=== PATIENT | male | born 1965 | race African-American/Black ===

== ENCOUNTER 2017-09-08 13:49 | Observation (INO) | payer BC ==
[2017-09-07 17:34] LABS: BASOPHILS % 0.2 % (0.0-1.0); EOSINOPHILS # (AUTO) 0.2 (0.0-0.4); EOSINOPHILS % 1.4 % (0.0-6.0); HEMATOCRIT 39.9 % (38.2-49.6); HEMOGLOBIN 13.2 g/dL (14.0-18.0); LYMPHOCYTES # (AUTO) 3.1 (1.0-3.2); LYMPHOCYTES % 26.9 % (18.0-39.1); MEAN CORPUSCULAR HEMOGLOBIN 28.5 pg (28-32); MEAN CORPUSCULAR HGB CONC 33.1 g/dL (31-35); MEAN CORPUSCULAR VOLUME 86.2 fL (81-99); MONOCYTES % 8.7 % (4.4-11.3); NEUTROPHILS # (AUTO) 7.2 (2.1-6.9); NEUTROPHILS % 62.5 % (38.7-80.0); PLATELET COUNT 382 x10e3/uL (140-360); RED BLOOD COUNT 4.63 x10e6/uL (4.3-5.7)
[2017-09-07 17:43] LABS: INR 1.04; PROTHROMBIN TIME 12.8 seconds (11.9-14.5)
[2017-09-07 17:51] LABS: ALANINE AMINOTRANSFERASE 9 IU/L (0-55); ALBUMIN/GLOBULIN RATIO 0.9 (0.8-2.0); ALKALINE PHOSPHATASE 118 IU/L (40-150); ANION GAP 13.9 mmol/L (8-16); BLOOD UREA NITROGEN 10 mg/dL (7-26); BUN/CREATININE RATIO 10 (6-25); CALCIUM 9.9 mg/dL (8.4-10.2); CARBON DIOXIDE 30 mmol/L (22-29); CHLORIDE 100 mmol/L (98-107); CHOL/HDL RATIO 4.5 (3.9-4.7); CHOLESTEROL 134 MD/DL (0-199); CREATININE, SERUM 1.03 mg/dL (0.72-1.25); EST GLOMERULAR FILTRATION RATE > 60 ML/MIN (60-); GLUCOSE 105 mg/dL (74-118); HDL CHOLESTEROL 30 MG/DL (40-60); LDL CHOLESTEROL 81 MG/DL (60-130); POTASSIUM 3.9 mmol/L (3.5-5.1); SODIUM 140 mmol/L (136-145); TRIGLYCERIDES 114 MG/DL (0-149)
[2017-09-08] VITALS (10 sets, daily range): BP systolic 113–136; BP diastolic 64–89
[~2017-09-08] VITALS: Ht 190.5 cm; Wt 110.2 kg
[2017-09-08] MEDS ORDERED: ASPIRIN CHEW81 MG PO (14:42)
[2017-09-08] MEDS ORDERED: EFFIENT10 MG PO (14:42)
[2017-09-08] MEDS ORDERED: HYDRALAZINE HCL25 MG PO (14:42)
[2017-09-08] MEDS ORDERED: LOSARTAN POTASS25 MG PO (14:42)
[2017-09-08] MEDS ORDERED: ATORVASTATIN CA20 MG PO (14:42)
[2017-09-08] MEDS ORDERED: AMLODIPINE BESY10 MG PO (14:42)
[2017-09-08] MEDS ORDERED: METOPROLOL SUCC25 MG PO (14:42)
[2017-09-08] MEDS ORDERED: HEPARIN SOD (PORCINE) 1000 UNIT/ML 30ML ONE (15:04)
[2017-09-08] MEDS ORDERED: VERAPAMIL HCL 2.5 MG/ML 2 ML VIAL ONE (15:04)
[2017-09-08] MEDS ORDERED: FENTANYL CITRATE/PF 100MCG/2 ML INJ ONE (15:04)
[2017-09-08] MEDS ORDERED: HEPARIN SOD/SOD CHLORIDE 2,000 ML ONE (15:05)
[2017-09-08] MEDS ORDERED: LIDOCAINE HCL 2% LOCAL 20 ML VIAL ONE (15:05)
[2017-09-08] MEDS ORDERED: MIDAZOLAM HCL 2 MG/2 ML VIAL ONE (15:05)
[2017-09-08] MEDS ORDERED: NITROGLYCERIN/D5W 200 MCG/ML 250 ML ONE (15:06)
[2017-09-08] MEDS ORDERED: SODIUM CHLORIDE 0.9% 1000ML 1,000 ML ONE (15:06)
[2017-09-08] MEDS ORDERED: IOPAMIDOL 370 MG/ML 200 ML INFUS..BTL INJ ONE (15:06)
--- NOTE | 2017-09-08 17:24 | Operative Report ---
DATE OF PROCEDURE: September 08, 2017 PROCEDURE INDICATION: Recent acute coronary syndrome with residual stable angina. Patient with multivessel coronary artery disease status post LAD and diagonal drug-eluting stent PCI with residual 95% stenosis of the RPDA here for staged intervention of the RPDA. PROCEDURES PERFORMED 1. Selective coronary angiography of the right coronary system. 2. Drug-eluting stent prior PCI with a Synergy 2.25 x 16 drug-eluting stent deployed to 14 atmospheres across the target lesion with excellent results. 3. Right radial TR banding hemostasis. PROCEDURE COMPLICATIONS: None. ESTIMATED BLOOD LOSS: Less than 15 mL. PROCEDURE SUMMARY: After consent was obtained, the patient was prepped and draped in a sterile fashion. The right radial site was locally infiltrated with 2% lidocaine. Access was obtained using single anterior stick and a 5-Romanian outer diameter slender sheath was advanced across the right radial artery. A [employer] right [id number] 5-Romanian guide catheter was advanced over a wire into the proximal ascending aorta and across the aortic valve with hemodynamic measurements. No left ventriculogram was performed. The IR-1 no SH was then used to engage the right coronary artery and the following findings were noted: Tandem areas of 30% stenosis across the RCA. The RPDA has a 95% stenosis with NAOMI III flow. The RPLV has luminal irregularities less than 30% stenosis. It was decided to proceed with intervention using heparin for an ACT over 250, aspirin and Effient preloading. A run through wire was used to cross the area of R-PDA stenosis and Synergy 2.25 x 16 drug-eluting stent was deployed across the target lesion to 14 atmospheres relieving the stenosis with 0% residual stenosis, NAOMI III flow, no dissections and no perforations post procedure. TR band was applied for hemostasis to the right radial site. CONCLUSION: RPDA drug-eluting stent PCI using a Synergy 2.25 x 16 mm drug-eluting stent. RECOMMENDATIONS: Continue aspirin and Effient. Resume home medications and IV fluids. Observe overnight. Discharge home in the a.m. if no complications arise. Job#: [id number] GH MTDD
[2017-09-08] MEDS ORDERED: METOPROLOL SUCCINATE 25 MG TAB XL PO SCH (18:45)
[2017-09-08] MEDS ORDERED: ATORVASTATIN 20 MG TAB PO SCH (21:00)
[2017-09-08] MEDS ORDERED: ATORVASTATIN 40 MG TAB PO SCH (21:00)
[2017-09-08] MEDS ORDERED: METOPROLOL TARTRATE 50 MG TAB PO SCH (21:00)
[2017-09-08] MEDS: HYDRALAZINE HCL 25 MG TAB PO SCH (21:03)
[2017-09-08] MEDS: METOPROLOL SUCCINATE 50 MG TAB XL PO SCH (21:04)
[2017-09-09 00:09] VITALS: BP 118/66
[2017-09-09 04:00] VITALS: BP 138/81
[2017-09-09 08:04] VITALS: BP 149/76
[2017-09-09] MEDS: HYDRALAZINE HCL 25 MG TAB PO SCH (08:04)
[2017-09-09] MEDS: METOPROLOL SUCCINATE 50 MG TAB XL PO SCH (08:05)
[2017-09-09] MEDS ORDERED: LOSARTAN POTASSIUM 25 MG TAB PO SCH (09:00)
[2017-09-09] MEDS ORDERED: PRASUGREL 10 MG TAB PO SCH ×2 (09:00)
[2017-09-09] MEDS ORDERED: ASPIRIN 81 MG CHEW TAB PO SCH (09:00)
[2017-09-09] MEDS ORDERED: AMLODIPINE BESYLATE 10 MG TAB PO SCH (09:00)
== END 2017-09-09 08:29 | disposition home or self-care (01) ==
LOC: CATH LAB 13:49 → IMCU 18:33 → INTOOBSV 18:33
PROVIDERS: ADMIT Internal Medicine Cardiovascular Disease; ATTEND Internal Medicine Cardiovascular Disease
DX: R42 Dizziness and giddiness (principal); I25.118 Atherosclerotic heart disease of native coronary artery with other forms of angina pectoris; I25.2 Old myocardial infarction
CPT/HCPCS: 36140; 36415; 77002; 80053; 80061; 85025; 85610; 93005; C1887; C9600; G0378; J1644; J2001; J2250; J7030; Q9967

== ENCOUNTER → 2021-12-08 | Day surgery (SDC) | payer BC ==
[2021-12-04 10:18] LABS: BASOPHILS % 0.1 % (0.0-1.0); EOSINOPHILS # (AUTO) 0.2 (0.0-0.4); HEMOGLOBIN 13.5 g/dL (14.0-18.0); LYMPHOCYTES # (AUTO) 2.4 (1.0-3.2); LYMPHOCYTES % 31.3 % (18.0-39.1); MEAN CORPUSCULAR HEMOGLOBIN 28.6 pg (28-32); MEAN CORPUSCULAR HGB CONC 32.1 g/dL (31-35); MONOCYTES # (AUTO) 0.8 (0.2-0.8); MONOCYTES % 10.1 % (4.4-11.3); NEUTROPHILS # (AUTO) 4.3 (2.1-6.9); NEUTROPHILS % 55.2 % (38.7-80.0); PLATELET COUNT 301 x10e3/uL (140-360); RED BLOOD COUNT 4.72 x10e6/uL (4.3-5.7); RED CELL DISTRIBUTION WIDTH 13.6 % (11.7-14.4)
[2021-12-04 10:33] LABS: INR 0.86; PARTIAL THROMBOPLASTIN TIME 27.2 seconds (23.8-35.5); PROTHROMBIN TIME 12.5 seconds (11.9-14.5)
[2021-12-04 10:57] LABS: ALBUMIN 3.8 g/dL (3.5-5.0); ALBUMIN/GLOBULIN RATIO 0.9 (0.8-2.0); ANION GAP 12.5 mmol/L (8-16); CHOL/HDL RATIO 5.8 (3.9-4.7); POTASSIUM 3.5 mmol/L (3.5-5.1)
[2021-12-08] VITALS (14 sets, daily range): BP systolic 116–141; BP diastolic 81–99
[~2021-12-08] VITALS: Ht 190.5 cm; Wt 104.3 kg
[~2021-12-08] MED LIST: AMLODIPINE BESY10 MG PO; ASPIRIN 325 MG TAB ONE; ASPIRIN CHEW81 MG PO; ATORVASTATIN CA20 MG PO; EFFIENT10 MG PO; FENTANYL CITRATE/PF 100MCG/2 ML INJ ONE; HEPARIN SOD (PORCINE) 1000 UNIT/ML 30ML ONE; HEPARIN SOD/SOD CHLORIDE 2,000 ML ONE; HYDRALAZINE HCL10 MG PO; HYDRALAZINE HCL25 MG PO; ICOSAPENT ETHYL1 GM; IOPAMIDOL 370 MG/ML 100 ML INFUS..BTL INJ ONE; ISOSORBIDE MONO30 MG PO; LIDOCAINE HCL 1% LOCAL INJ 20 ML VIAL ONE; LOSARTAN POTASS25 MG PO; METOPROLOL SUCC25 MG PO; METOPROLOL SUCC50 MG PO; MIDAZOLAM HCL 2 MG/2 ML VIAL ONE; NITROGLYCERIN/D5W 200 MCG/ML 250 ML ONE; NITROGLYCERIN0.4 MG SL; SODIUM CHLORIDE 0.9% 1000ML 1,000 ML ONE; VERAPAMIL HCL 2.5 MG/ML 2 ML VIAL ONE; ZETIA10 MG PO
== END | disposition home or self-care (01) ==
LOC: CATH LAB 07:09
PROVIDERS: ATTEND Internal Medicine Cardiovascular Disease
DX: I25.110 Atherosclerotic heart disease of native coronary artery with unstable angina pectoris (principal); I11.0 Hypertensive heart disease with heart failure; I50.9 Heart failure, unspecified; E78.5 Hyperlipidemia, unspecified; Z71.89 Other specified counseling; Z71.3 Dietary counseling and surveillance; Z01.812 Encounter for preprocedural laboratory examination; Z20.822 Contact with and (suspected) exposure to COVID-19; Z79.82 Long term (current) use of aspirin; Z79.899 Other long term (current) drug therapy; Z68.31 Body mass index [BMI] 31.0-31.9, adult; Z95.5 Presence of coronary angioplasty implant and graft; Z87.891 Personal history of nicotine dependence; Z82.49 Family history of ischemic heart disease and other diseases of the circulatory system; Z82.3 Family history of stroke
CPT/HCPCS: 36415; 76937; 80053; 80061; 85025; 85610; 85730; 93458; C1769; C1887; J1644; J2001; J2250; J3010; J7030; Q9967; U0002; 99153